=== PATIENT | female | born 1945 | race Caucasian/White ===

== ENCOUNTER 2018-09-30 13:12 | Outpatient (CLI) | payer MEDICARE, BC ==
--- NOTE | 2018-09-30 14:28 | RAD ---
RIGHT KNEE FOUR VIEWS: 09/30/18 HISTORY: Right knee pain. FINDINGS/IMPRESSION: Mild degenerative changes are seen. No fracture, dislocation or bony destruction identified. POS: [facility]
--- NOTE | 2018-09-30 14:33 | RAD ---
LUMBAR SPINE: Two views. 09/30/18 HISTORY: Low back pain. Lumbar vertebrae maintain normal height and alignment. Moderate degenerative disc changes are seen at all levels. There is loss of disc space at all levels of the lumbar spine. Moderate osteophytes are seen anterior and laterally at all levels. Prominent facet hypertrophy is noted posteriorly. No evide nce of spondylolisthesis. IMPRESSION: Moderate degenerative changes as described. POS: [facility]
== END 2018-09-30 13:13 | disposition home or self-care (01) ==
LOC: BICRAD 13:12
PROVIDERS: ATTEND Internal Medicine
DX: M25.561 Pain in right knee (principal); M54.5 Low back pain; M47.816 Spondylosis without myelopathy or radiculopathy, lumbar region; M17.11 Unilateral primary osteoarthritis, right knee
CPT/HCPCS: 72100; 77063; 77067

== ENCOUNTER 2018-10-09 10:00 | Outpatient (CLI) | payer MEDICARE, BC ==
--- NOTE | 2018-10-09 11:43 | MRI ---
MR the lumbar spine without contrast INDICATION: Right leg pain and back pain COMPARISON: Lumbar spinal radiograph dated September 30, 2018 TECHNIQUE: Multiplanar multisequence MR images were obtained of lumbar spine without IV contrast. FINDINGS: Bone marrow: There is Modic endplate degenerative changes seen at L2-3 and L4-5 Distal spinal cord and conus: Normal. The conus seen to terminate at L1. Visualized retroperitoneum and paraspinal soft tissues: Normal. Vertebral levels: L5-S1: There is severe facet joint degenerative change and a broad-based disc bulge.. L4-5: There is a broad-based disc osteophyte complex with moderate to severe bilateral facet joint de generative change and loss of disc space height inducing moderate to severe bilateral neural foraminal narrowing. L3-4: There is a broad-based bulge with facet hypertrophy inducing mild central canal narrowing and m oderate bilateral neural foraminal narrowing, right greater than left L2-3: There is a broad-based bulge, asymmetric to the right, with facet hypertrophy inducing mild aubrey tral canal narrowing with moderate right and mild left neural foraminal narrowing. L1-L2: There is a broad-based bulge with facet hypertrophy. T12-L1: There is a mild broad-based bulge. There is a broad-based bulge with a superimposed left paracentral disc protrusion at T11-T12. IMPRESSION: 1. Moderate to severe spondylosis of the lumbar spine 2. Moderate to severe bilateral neural foraminal narrowing at L4-5. 3. Moderate bilateral neural foraminal narrowing, right greater than left, at L3-4 4. Moderate right and mild left neural foraminal narrowing at L2-3. 5. Left paracentral disc protrusion at T11-T12 without appreciable central canal or neural foraminal narrowing.
== END 2018-10-09 10:01 | disposition home or self-care (01) ==
LOC: TBSIIMAG 10:00
PROVIDERS: ATTEND Internal Medicine
DX: M51.16 Intervertebral disc disorders with radiculopathy, lumbar region (principal); M47.26 Other spondylosis with radiculopathy, lumbar region; M48.061 Spinal stenosis, lumbar region without neurogenic claudication; M51.24 Other intervertebral disc displacement, thoracic region
CPT/HCPCS: 72148

== ENCOUNTER 2019-08-03 10:14 | Emergency (ER) | payer MEDICARE, BC ==
[~2019-08-03 10:14] MED LIST: Iopamidol-370 76% 500 ML 1 ML ONE
[2019-08-03 11:07] LABS: #Basophils 0.1 thou/uL (0.0-0.2); #Eosinphils 0.1 thou/uL (0.0-0.7); #Lymphocytes 1.9 thou/uL (1.20-3.40); #Monocytes 0.4 thou/uL (0.11-0.59); #Neutrophils 2.7 thou/uL (1.40-6.50); %Eosinophils 2.3 % (0.0-10.0); %Lymphocytes 36.6 % (21.0-51.0); %Monocytes 8.1 % (0.0-10.0); %Neutrophils 50.9 % (42.0-75.0); Hemoglobin 15.3 g/dL (12.0-16.0); Mean Corpuscular HGB CONC 32.5 g/dL (32.0-36.0); Mean Corpuscular Volume 89.2 fL (78.0-98.0); Mean Platelet Volume 9.1 fL (7.4-10.4); Platelet Count 162 thou/uL (130-400); Red Blood Cell (RBC) Count 5.28 mill/uL (4.20-5.40); White Blood Cell (WBC) Count 5.3 thou/uL (4.8-10.8)
[2019-08-03] MEDS ORDERED: Morphine 4 MG/ML VIAL ONE (11:22)
[2019-08-03] MEDS ORDERED: Ondansetron PF 4 MG/2 ML Vial ONE (11:23)
[2019-08-03 11:36] LABS: ALT (SGPT) 36 U/L (8-55); AST (SGOT) 32 U/L (5-34); Albumin 4.3 g/dL (3.4-4.8); Alkaline Phosphatase 84 U/L (40-110); Anion Gap 13 mmol/L (10-20); BUN (Urea Nitrogen) 14 mg/dL (9.8-20.1); Bilirubin, Total 0.8 mg/dL (0.2-1.2); Calc. Creatinine Clearance 0 mL/min (70-130); Calcium 9.7 mg/dL (7.8-10.44); Carbon Dioxide 28 mmol/L (23-31); Chloride 104 mmol/L (98-107); Estimated GFR-MDRD 39; Globulin 3.6 g/dL (2.4-3.5); Glucose 96 mg/dL (83-110); Lipase 17 U/L (8-78); Potassium 4.1 mmol/L (3.5-5.1); Protein, Total 7.9 g/dL (6.0-8.3); Sodium 141 mmol/L (136-145)
[2019-08-03] MEDS ORDERED: diphenhydrAMINE 50 MG/ML VIAL ONE (12:15)
[2019-08-03] MEDS ORDERED: Famotidine/PF 20 mg/2ml Vial ONE (12:15)
[2019-08-03] MEDS ORDERED: methylPREDNISolone Sod Succ 40 MG VIAL ONE (12:15)
[2019-08-03 12:52] LABS: Bilirubin Negative (Negative); Blood, Urine Negative (Negative); Clarity Clear (Clear); Glucose, Urine (Dipstick) Normal (Negative); Leukocyte 250 Leu/uL (Negative); Nitrite Negative (Negative); Protein, Urine (Dipstick) Negative (Neg-Trace); RBC/HPF 0-3 HPF (0-3); Squamous Epithelial 0-3 HPF (0-3); Urobilinogen Normal mg/dL (Less than 2)
[2019-08-03 13:17] LABS: Bacteria/HPF None Seen HPF (None Seen); Calcium Oxalate Crystals Rare HPF (None Seen)
--- NOTE | 2019-08-03 14:05 | CT ---
CT ABDOMEN WITH CONTRAST CT PELVIS WITH CONTRAST: DATE: 08/03/2019 HISTORY: 73-year-old female with abdominal pain COMPARISON: 05/07/2012 TECHNIQUE: IV injection of iodinated contrast media: administered. Oral contrast media:Not administered FINDINGS: Diffusely low hepatic attenuation represents fatty liver. No solid or cystic hepatic mass. No portal vein thrombosis. Cholecystectomy clips. Atherosclerotic callus patient without aneurysm of abdominal aorta. No colonic diverticulitis, ascites, pneumoperitoneum, or small bowel dilation. Normal adrenals, kidneys, spleen, and appendix. Lung bases are clear. No pleural effusion. No pancreatic ductal dilation. Attenuated tissue at pancreatic head. This probably represents fatty i nfiltration or atrophy. The appearance is similar to that of previous CT. Acute pancreatitis is less likely, but clinical correlation with amylase and lipase recommended. Absent uterus. IMPRESSION: 1) appearance of pancreatic head is probably due to fatty infiltration or atrophy. It is less likely to be due to acute pancreatitis. Recommend correlation with serum amylase and lipase. 2.) Hepatic steatosis. 3) status post cholecystectomy and appendectomy.
== END 2019-08-03 14:57 | disposition home or self-care (01) ==
LOC: ERS 10:14
DX: N39.0 Urinary tract infection, site not specified (principal); E03.9 Hypothyroidism, unspecified; I10 Essential (primary) hypertension; R11.0 Nausea; Z79.899 Other long term (current) drug therapy
CPT/HCPCS: 36415; 74177; 80053; 81003; 81015; 83690; 85025; 87086; 96361; 96374; 96375; J1200; J2270; J2405; J2920; Q9967; S0028

== ENCOUNTER 2019-11-11 13:23 | Outpatient (CLI) | payer MEDICARE, BC ==
--- NOTE | 2019-11-11 13:57 | BD ---
EXAM: Bone densitometry using DEXA HISTORY: 74 yo female. Screening for postmenopausal osteoporosis FINDINGS: L1--bone mineral density 0.956 g/sq cm; T score -0.3 ; Z score 1.8 L2--bone mineral density 1.088 g/sq cm; T score 0.5 ; Z score 2.9 L3--bone mineral density 1.330 g/sq cm; T score 2.2 ; Z score 4.7 L4--bone mineral density 1.318 g/sq cm; T score 2.3 ; Z score 4.9 Total L1-L4--bone mineral density 1.14 g/sq cm; T score 1.2 ; Z score 2.6 Left femoral neck--bone mineral density0.694; T score -1.4 ; Z score 0.6 Total proximal left femur--bone mineral density 0.901; T score -0.3 ; Z score 1.4 The 10 year fracture risk for a major osteoporotic fracture is 10% and for a hip fracture is 1.8%. IMPRESSION: Osteopenia
== END 2019-11-11 13:24 | disposition home or self-care (01) ==
LOC: BICMAMMO 13:23
PROVIDERS: ATTEND Physician Assistant
DX: Z13.820 Encounter for screening for osteoporosis (principal); M85.852 Other specified disorders of bone density and structure, left thigh; Z78.0 Asymptomatic menopausal state
CPT/HCPCS: 77080

== ENCOUNTER 2020-10-05 | Outpatient (CLI) | payer MEDICARE, BC | END 2020-10-05 10:49 | disposition home or self-care (01) | DX: Z12.31 Encounter for screening mammogram for malignant neoplasm of breast (principal); Z91.89 Other specified personal risk factors, not elsewhere classified | CPT/HCPCS: 77063; 77067 ==

== ENCOUNTER 2021-08-08 15:10 | Outpatient (CLI) | payer MEDICARE, BC | END 2021-08-08 15:11 | disposition home or self-care (01) | LOC: BICRAD 15:10 | PROVIDERS: ATTEND Internal Medicine | DX: M25.561 Pain in right knee (principal) ==

== ENCOUNTER 2021-10-08 14:12 | Outpatient (CLI) | payer MEDICARE, BC | END 2021-10-08 14:13 | disposition home or self-care (01) | LOC: BICMAMMO 14:12 | PROVIDERS: ATTEND Internal Medicine | DX: Z12.31 Encounter for screening mammogram for malignant neoplasm of breast (principal); Z91.89 Other specified personal risk factors, not elsewhere classified | CPT/HCPCS: 77063; 77067 ==

== ENCOUNTER 2022-01-30 13:06 | Outpatient (CLI) | payer MEDICARE, BC | END 2022-01-30 13:07 | disposition home or self-care (01) | LOC: BICMAMMO 13:06 | PROVIDERS: ATTEND Internal Medicine | DX: M85.88 Other specified disorders of bone density and structure, other site (principal); Z78.0 Asymptomatic menopausal state | CPT/HCPCS: 77080 ==

== ENCOUNTER 2022-06-27 12:30 | Day surgery (SDC) | payer MEDICARE, BC ==
[2022-06-26 08:59] VITALS: BMI 30.4
[2022-06-27] MEDS ORDERED: Sodium Bicarbonate 2.5 MEQ/5 ML VIAL ONE (12:35)
[2022-06-27] MEDS ORDERED: Lidocaine 1% PF 5 ML VIAL ONE (12:35)
== END 2022-06-27 14:07 | disposition home or self-care (01) ==
LOC: ULT 12:30
PROVIDERS: ATTEND Student in an Organized Health Care Education/Training Program
PROC: 0G9H3ZX Drainage of Right Thyroid Gland Lobe, Percutaneous Approach, Diagnostic (ICD-10-PCS; principal; 2022-06-27)
DX: E04.1 Nontoxic single thyroid nodule (principal); Z88.0 Allergy status to penicillin; Z88.2 Allergy status to sulfonamides; Z91.041 Radiographic dye allergy status; Z91.048 Other nonmedicinal substance allergy status
CPT/HCPCS: 10005; 88173; 88305

== ENCOUNTER 2023-01-24 11:01 | Outpatient (CLI) | payer MEDICARE, BC | END 2023-01-24 11:02 | disposition home or self-care (01) | LOC: BICCT 11:01 | PROVIDERS: ATTEND Internal Medicine | DX: R91.1 Solitary pulmonary nodule (principal) | CPT/HCPCS: 71250 ==

== ENCOUNTER 2023-03-14 12:49 | Outpatient (CLI) | payer MEDICARE | END 2023-03-14 12:50 | disposition home or self-care (01) | LOC: BICMAMMO 12:49 | PROVIDERS: ATTEND Internal Medicine | DX: Z12.31 Encounter for screening mammogram for malignant neoplasm of breast (principal); Z91.89 Other specified personal risk factors, not elsewhere classified | CPT/HCPCS: 77063; 77067 ==

== ENCOUNTER 2024-03-02 14:56 | Outpatient (CLI) | payer MEDICARE | END 2024-03-02 14:57 | disposition home or self-care (01) | LOC: BICCT 14:56 | PROVIDERS: ATTEND Internal Medicine Critical Care Medicine | DX: R91.8 Other nonspecific abnormal finding of lung field (principal) | CPT/HCPCS: 71250 ==

== ENCOUNTER 2024-03-19 12:51 | Outpatient (CLI) | payer MEDICARE | END 2024-03-19 12:52 | disposition home or self-care (01) | LOC: BICMAMMO 12:51 | PROVIDERS: ATTEND Internal Medicine | DX: Z12.31 Encounter for screening mammogram for malignant neoplasm of breast (principal); Z78.0 Asymptomatic menopausal state; Z91.89 Other specified personal risk factors, not elsewhere classified; N64.89 Other specified disorders of breast; M85.851 Other specified disorders of bone density and structure, right thigh; M85.852 Other specified disorders of bone density and structure, left thigh | CPT/HCPCS: 77063; 77067; 77080 ==